=== PATIENT | female | born 1980 | race Caucasian/White ===

== ENCOUNTER 2018-04-04 17:43 | Emergency (ER) | payer MEDICAID, OTHER ==
[2018-04-04] MEDS: LIDOCAINE 2%/EPI MPF (SDV) 20 ML VIAL INJ (19:27)
== END 2018-04-04 20:01 | disposition home or self-care (01) ==
LOC: FTE 17:43
DX: L02.415 Cutaneous abscess of right lower limb (principal)
CPT/HCPCS: 10060; 99284-25